=== PATIENT | female | born 1945 | race Caucasian/White ===

== ENCOUNTER 2017-06-20 14:28 | Inpatient (IN) | payer MEDICARE, OTHER ==
[~2017-06-20] VITALS: Ht 157.5 cm; Wt 50.8 kg
[~2017-06-20 14:28] MED LIST: LORA0.5T PO; OMEP-84 PO; RISP1TAB3 PO; SERT25TA PO; VENL75CA61 PO
[2017-06-20] MEDS ORDERED: ziprasidone IM 20mg inj **IM only IM ONE ×2 (15:50→19:50)
[2017-06-20 16:28] LABS: BASOPHILS % (AUTO) 0.2 % (0-1); EOSINOPHILS # (AUTO) 0.1 X10'3 (0-0.9); EOSINOPHILS % (AUTO) 0.4 % (0-6); HEMATOCRIT 36.1 % (35.0-45.0); HEMOGLOBIN 12.6 g/dl (12.0-16.0); LYMPHOCYTES # (AUTO) 0.9 X10'3 (1.1-4.8); LYMPHOCYTES % (AUTO) 6.2 % (21-51); MEAN CORPUSCULAR HEMOGLOBIN 29.9 PG (27.0-31.0); MEAN CORPUSCULAR VOLUME 85.5 FL (78-98); MEAN PLATELET VOLUME 7.5 FL (7.4-10.4); MONOCYTES # (AUTO) 0.6 X10'3 (0-0.9); MONOCYTES % (AUTO) 4.1 % (2-12); NEUTROPHILS # (AUTO) 12.2 X10'3 (1.8-7.7); NEUTROPHILS % (AUTO) 89.1 % (42-75); PLATELET COUNT 328 X10'3 (140-440); RED BLOOD COUNT 4.22 X10'6 (4.20-5.60); RED CELL DISTRIBUTION WIDTH 13.5 % (11.5-14.5); WHITE BLOOD COUNT 13.7 X10'3 (4.5-11.0)
[2017-06-20 16:43] LABS: ALANINE AMINOTRANSFERASE 21 U/L (12-78); ALBUMIN 3.4 G/DL (3.4-5.0); ALBUMIN/GLOBULIN RATIO 1.1 (1.1-1.5); ALKALINE PHOSPHATASE 81 IU/L (46-116); ANION GAP 10 (8-16); ASPARTATE AMINO TRANSFERASE 26 U/L (10-37); BILIRUBIN,TOTAL 0.7 MG/DL (0.1-1.0); BLOOD UREA NITROGEN 7 MG/DL (7-18); CALCIUM 9.1 MG/DL (8.5-10.1); CHLORIDE 89 MMOL/L (99-107); ETHANOL < 0.010 GM/DL (0.0-0.010); GLUCOSE 105 MG/DL (70-104); POTASSIUM 4.2 MMOL/L (3.5-5.1); SODIUM 123 MMOL/L (135-145); TOTAL CARBON DIOXIDE 24.4 MMOL/L (24-32); TOTAL PROTEIN 6.4 G/DL (6.4-8.2); eGFR 82 ML/MIN
[2017-06-20 17:08] LABS: URINE AMPHETAMINE SCREEN NEGATIVE (Neg); URINE BARBITUATE SCREEN NEGATIVE (Neg); URINE BENZODIAZEPINES SCREEN NEGATIVE (Neg); URINE CANNABINOID SCREEN NEGATIVE (Neg); URINE COCAINE SCREEN NEGATIVE (Neg); URINE METHADONE SCREEN NEGATIVE (Neg); URINE OPIATE SCREEN NEGATIVE (Neg); URINE PHENCYCLIDINE SCREEN NEGATIVE (Neg)
[2017-06-20] MEDS: normal saline 1000ml 1,000 ML IV SCH (17:41)
[2017-06-20] MEDS ORDERED: diphenhydrAMINE 50 mg/ml inj IV PRN (17:45)
[2017-06-20] MEDS ORDERED: acetaminophen 650mg rectal suppository RC PRN (17:45)
[2017-06-20] MEDS ORDERED: magnesium hydroxide 30ml (MOM) UD suspension PO PRN (17:45)
[2017-06-20] MEDS ORDERED: potassium Cl 40MEQ/NS 500ml 500 ML IV PRN ×2 (17:45)
[2017-06-20] MEDS ORDERED: potassium Cl 20 mEq SR tablet PO PRN ×2 (17:45)
[2017-06-20] MEDS ORDERED: magnesium Cl slow-release 64mg tablet PO PRN (17:45)
[2017-06-20] MEDS ORDERED: ondansetron/PF 4mg/2ml inj IV PRN (17:45)
[2017-06-20] MEDS ORDERED: mag hydrox/Alum hydrox/simeth 30ml oral suspension PO PRN (17:45)
[2017-06-20] MEDS ORDERED: LORazepam 2 mg/ml vial IV PRN (17:45)
[2017-06-20] MEDS ORDERED: magnesium 4gm in 100ml NS 100 ML IV PRN (17:45)
[2017-06-20] MEDS ORDERED: magnesium 2GM in 50ml NS 50 ML IV PRN (17:45)
[2017-06-20] MEDS: K and/or MAG REPLACEMENT MC SCH (17:45)
[2017-06-20 18:22] LABS: HEMOGLOBIN A1C 5.1 % (4.5-6.2)
[2017-06-20 18:42] LABS: TROPONIN I 2.71 NG/ML (0.0-0.05)
[2017-06-20 18:47] LABS: CLARITY,URINE Turbid (Clear); COLOR,URINE Yellow (Yellow); GLUCOSE, URINE Negative (Neg); KETONES,URINE Negative (Neg); LEUKOCYTE ESTERASE ,URINE Small (Neg); NITRITES, URINE Negative (Neg); OCCULT BLOOD,URINE Trace (Neg); PH,URINE 5.5 (4.8-8.0); PROTEIN,URINE Negative (Neg)
[2017-06-20 18:59] LABS: UA COLLECTION TYPE VOIDED
[2017-06-20 19:00] LABS: AMORPHOUS URATES 1+; BACTERIA,URINE 1+ /HPF (Neg); RBC,URINE 0-2 /HPF (0-2); SQUAMOUS EPITHELIAL CELL,UR FEW /LPF (FEW)
[2017-06-20] MEDS ORDERED: heparin 10,000 units/1 ML INJ IV PRN (19:00)
[2017-06-20] MEDS ORDERED: aspirin 325mg tablet PO ONE (19:00)
[2017-06-20] MEDS ORDERED: heparin 10,000 units/1 ML INJ IV ONE (19:00)
[2017-06-20] MEDS: heparin 10,000 units/1 ML INJ IV PRN (20:04)
[2017-06-20] MEDS ORDERED: temazepam 15mg capsule PO PRN (21:00)
[2017-06-20 21:25] LABS: BASOPHILS % (AUTO) 0 % (0-1); EOSINOPHILS # (AUTO) 0.1 X10'3 (0-0.9); EOSINOPHILS % (AUTO) 1.1 % (0-6); LYMPHOCYTES % (AUTO) 10.5 % (21-51); MEAN CORPUSCULAR HEMOGLOBIN 30.2 PG (27.0-31.0); MEAN CORPUSCULAR HGB CONC 35.2 % (33.0-36.5); MEAN CORPUSCULAR VOLUME 85.7 FL (78-98); MEAN PLATELET VOLUME 6.9 FL (7.4-10.4); MONOCYTES # (AUTO) 0.5 X10'3 (0-0.9); MONOCYTES % (AUTO) 5.2 % (2-12); NEUTROPHILS # (AUTO) 8.2 X10'3 (1.8-7.7); NEUTROPHILS % (AUTO) 83.2 % (42-75); PLATELET COUNT 295 X10'3 (140-440); RED BLOOD COUNT 4.31 X10'6 (4.20-5.60); RED CELL DISTRIBUTION WIDTH 13.6 % (11.5-14.5); WHITE BLOOD COUNT 9.8 X10'3 (4.5-11.0)
[2017-06-20 21:37] LABS: PARTIAL THROMBOPLASTIN TIME 27 SECONDS (22-32); PROTHROMBIN TIME 10.7 SECONDS (9.0-12.0)
[2017-06-21] MEDS: normal saline 1000ml 1,000 ML IV SCH ×3 (01:41→17:41)
[2017-06-21 04:14] LABS: ALANINE AMINOTRANSFERASE 22 U/L (12-78); ALBUMIN 2.9 G/DL (3.4-5.0); ALBUMIN/GLOBULIN RATIO 1.1 (1.1-1.5); ALKALINE PHOSPHATASE 73 IU/L (46-116); ANION GAP 8 (8-16); ASPARTATE AMINO TRANSFERASE 43 U/L (10-37); BILIRUBIN,TOTAL 0.7 MG/DL (0.1-1.0); BLOOD UREA NITROGEN 5 MG/DL (7-18); BUN/CREATININE RATIO 7.1 (6.6-38.0); CALCIUM 8.5 MG/DL (8.5-10.1); CHLORIDE 98 MMOL/L (99-107); CHOLESTEROL 125 MG/DL (0-200); GLUCOSE 82 MG/DL (70-104); HDL CHOLESTEROL 61 MG/DL (35-60); LDL CHOLESTEROL 54 MG/DL (50-100); MAGNESIUM 1.7 MG/DL (1.5-2.4); PHOSPHORUS 3.3 MG/DL (2.3-4.5); POTASSIUM 4.3 MMOL/L (3.5-5.1); SODIUM 132 MMOL/L (135-145); TOTAL CARBON DIOXIDE 26.5 MMOL/L (24-32); TOTAL PROTEIN 5.6 G/DL (6.4-8.2); TRIGLYCERIDES 32 MG/DL (20-135); eGFR 82 ML/MIN
[2017-06-21 04:17] LABS: TROPONIN I 5.72 NG/ML (0.0-0.05)
[2017-06-21 06:31] LABS: BASOPHILS % (AUTO) 0.5 % (0-1); EOSINOPHILS # (AUTO) 0.1 X10'3 (0-0.9); EOSINOPHILS % (AUTO) 1.2 % (0-6); HEMATOCRIT 33.2 % (35.0-45.0); HEMOGLOBIN 11.3 g/dl (12.0-16.0); LYMPHOCYTES # (AUTO) 0.8 X10'3 (1.1-4.8); LYMPHOCYTES % (AUTO) 13.6 % (21-51); MEAN CORPUSCULAR HGB CONC 34.1 % (33.0-36.5); MEAN PLATELET VOLUME 7.3 FL (7.4-10.4); MONOCYTES # (AUTO) 0.4 X10'3 (0-0.9); MONOCYTES % (AUTO) 6.8 % (2-12); NEUTROPHILS # (AUTO) 4.8 X10'3 (1.8-7.7); NEUTROPHILS % (AUTO) 77.9 % (42-75); PLATELET COUNT 251 X10'3 (140-440); RED BLOOD COUNT 3.77 X10'6 (4.20-5.60); RED CELL DISTRIBUTION WIDTH 13.7 % (11.5-14.5); WHITE BLOOD COUNT 6.2 X10'3 (4.5-11.0)
[2017-06-21] MEDS: K and/or MAG REPLACEMENT MC SCH (08:00)
[2017-06-21] MEDS ORDERED: enoxaparin 40mg/0.4ml syringe SUBCUT SCH (08:00)
[2017-06-21] MEDS: atorvastatin 10mg tablet PO SCH (09:40)
[2017-06-21] MEDS: aspirin 81mg tablet.DR PO SCH (09:40)
[2017-06-21] MEDS: LORazepam 0.5 MG tablet PO SCH (13:42)
[2017-06-21] MEDS: sertraline 50mg tablet PO SCH (13:42)
[2017-06-21] MEDS: pantoprazole 40mg Tablet.DR PO SCH (13:43)
[2017-06-21] MEDS: venlafaxine XR 75mg capsule (Q24H) PO SCH (13:43)
[2017-06-21] MEDS: risperiDONE 0.5mg tablet PO SCH (13:44)
[2017-06-21 14:53] VITALS: BP 104/62
[2017-06-21] MEDS: heparin 10,000 units/1 ML INJ IV PRN (17:23)
[2017-06-21 19:00] VITALS: BP 106/55
[2017-06-21] MEDS: acetaminophen 325mg tablet PO PRN (19:31)
[2017-06-21] MEDS ORDERED: NO HOME MEDS (20:12)
[2017-06-21 23:00] VITALS: BP 96/51
[2017-06-22 03:00] VITALS: BP 118/68
[2017-06-22] MEDS: acetaminophen 325mg tablet PO PRN (04:01)
[2017-06-22 06:00] VITALS: BP 124/76
[2017-06-22 06:01] LABS: BASOPHILS % (AUTO) 0.5 % (0-1); EOSINOPHILS # (AUTO) 0.1 X10'3 (0-0.9); EOSINOPHILS % (AUTO) 1.5 % (0-6); LYMPHOCYTES # (AUTO) 1.4 X10'3 (1.1-4.8); LYMPHOCYTES % (AUTO) 23.4 % (21-51); MEAN CORPUSCULAR HEMOGLOBIN 30.1 PG (27.0-31.0); MEAN CORPUSCULAR HGB CONC 34.3 % (33.0-36.5); MEAN CORPUSCULAR VOLUME 87.8 FL (78-98); MEAN PLATELET VOLUME 8.1 FL (7.4-10.4); MONOCYTES # (AUTO) 0.4 X10'3 (0-0.9); MONOCYTES % (AUTO) 7.1 % (2-12); NEUTROPHILS % (AUTO) 67.5 % (42-75); PLATELET COUNT 224 X10'3 (140-440); RED BLOOD COUNT 3.64 X10'6 (4.20-5.60)
[2017-06-22 06:16] LABS: ALANINE AMINOTRANSFERASE 23 U/L (12-78); ALBUMIN 2.7 G/DL (3.4-5.0); ALKALINE PHOSPHATASE 59 IU/L (46-116); ANION GAP 9 (8-16); ASPARTATE AMINO TRANSFERASE 32 U/L (10-37); BILIRUBIN,TOTAL 0.4 MG/DL (0.1-1.0); BLOOD UREA NITROGEN 20 MG/DL (7-18); BUN/CREATININE RATIO 24.4 (6.6-38.0); CHLORIDE 103 MMOL/L (99-107); CREATININE 0.82 MG/DL (0.40-0.90); GLUCOSE 101 MG/DL (70-104); MAGNESIUM 1.7 MG/DL (1.5-2.4); PHOSPHORUS 3.1 MG/DL (2.3-4.5); POTASSIUM 4.2 MMOL/L (3.5-5.1); SODIUM 135 MMOL/L (135-145); TOTAL CARBON DIOXIDE 22.8 MMOL/L (24-32); TOTAL PROTEIN 5.5 G/DL (6.4-8.2); eGFR 69 ML/MIN
[2017-06-22] MEDS: normal saline 1000ml 1,000 ML IV SCH (06:31)
[2017-06-22] MEDS: sertraline 50mg tablet PO SCH (07:50)
[2017-06-22] MEDS: venlafaxine XR 75mg capsule (Q24H) PO SCH (07:51)
[2017-06-22] MEDS: pantoprazole 40mg Tablet.DR PO SCH (07:51)
[2017-06-22] MEDS: LORazepam 0.5 MG tablet PO SCH (07:51)
[2017-06-22] MEDS: atorvastatin 10mg tablet PO SCH (07:51)
[2017-06-22] MEDS: aspirin 81mg tablet.DR PO SCH (07:51)
[2017-06-22] MEDS: risperiDONE 0.5mg tablet PO SCH (07:54)
[2017-06-22] MEDS ORDERED: clopidogrel 75mg tablet PO SCH (08:00)
[2017-06-22] MEDS: K and/or MAG REPLACEMENT MC SCH (08:00)
[2017-06-22] MEDS ORDERED: lisinopril 5mg tablet PO SCH (08:05)
[2017-06-22 11:00] VITALS: BP 100/52
[2017-06-22] MEDS: heparin 10,000 units/1 ML INJ IV PRN (13:16)
[2017-06-22 15:00] VITALS: BP 106/58
== END 2017-06-22 19:31 | disposition left against medical advice (07) | DRG 280 ==
LOC: ER 14:28 → ED HOLD 17:41 → EDBEDREQ 06-21 12:57 → PCU 3S 06-21 14:00
PROVIDERS: ADMIT Family Medicine; ATTEND Family Medicine
DX: I21.4 Non-ST elevation (NSTEMI) myocardial infarction (principal); G93.40 Encephalopathy, unspecified; E87.1 Hypo-osmolality and hyponatremia; E86.0 Dehydration; F23 Brief psychotic disorder; D72.829 Elevated white blood cell count, unspecified; F32.9 Major depressive disorder, single episode, unspecified; F41.9 Anxiety disorder, unspecified; F12.90 Cannabis use, unspecified, uncomplicated; Z53.21 Procedure and treatment not carried out due to patient leaving prior to being seen by health care provider; Z60.2 Problems related to living alone; I34.0 Nonrheumatic mitral (valve) insufficiency; R41.3 Other amnesia; J44.9 Chronic obstructive pulmonary disease, unspecified; Z88.0 Allergy status to penicillin; Z88.1 Allergy status to other antibiotic agents; Z88.6 Allergy status to analgesic agent; Z79.899 Other long term (current) drug therapy; Z90.710 Acquired absence of both cervix and uterus; Z91.19 Patient's noncompliance with other medical treatment and regimen
CPT/HCPCS: 36415; 70450; 80053; 80061; 80305; 80320; 81001; 83036; 83605; 83735; 84100; 84484; 85025; 85610; 85730; 87040; 87070; 87077; 87088; 87186; 93306; 99285; A6213; J1644; J3486; J7030

== ENCOUNTER 2018-01-07 12:57 | Emergency (ER) | payer MEDICARE, OTHER ==
[~2018-01-07] VITALS: Ht 147.3 cm; Wt 43.0 kg
[~2018-01-07 12:57] MED LIST changes: -LORA0.5T PO; +NO HOME MEDS; -OMEP-84 PO; -RISP1TAB3 PO; -SERT25TA PO; -VENL75CA61 PO
[2018-01-07 13:51] LABS: BASOPHILS % (AUTO) 0 % (0-1); EOSINOPHILS % (AUTO) 0.4 % (0-6); HEMATOCRIT 42.3 % (35.0-45.0); HEMOGLOBIN 14.1 g/dl (12.0-16.0); LYMPHOCYTES # (AUTO) 0.6 X10'3 (1.1-4.8); MEAN CORPUSCULAR HEMOGLOBIN 29.7 PG (27.0-31.0); MEAN CORPUSCULAR HGB CONC 33.2 % (33.0-36.5); MEAN CORPUSCULAR VOLUME 89.2 FL (78-98); MEAN PLATELET VOLUME 8.2 FL (7.4-10.4); MONOCYTES # (AUTO) 0.2 X10'3 (0-0.9); NEUTROPHILS # (AUTO) 6.8 X10'3 (1.8-7.7); NEUTROPHILS % (AUTO) 88.6 % (42-75); PLATELET COUNT 248 X10'3 (140-440); RED BLOOD COUNT 4.74 X10'6 (4.20-5.60); RED CELL DISTRIBUTION WIDTH 13.8 % (11.5-14.5); WHITE BLOOD COUNT 7.7 X10'3 (4.5-11.0)
[2018-01-07 14:03] LABS: CLARITY,URINE CLEAR (Clear); COLOR,URINE YELLOW (Yellow); GLUCOSE, URINE NEGATIVE (Neg); KETONES,URINE NEGATIVE (Neg); LEUKOCYTE ESTERASE ,URINE NEGATIVE (Neg); NITRITES, URINE NEGATIVE (Neg); OCCULT BLOOD,URINE NEGATIVE (Neg); PROTEIN,URINE NEGATIVE (Neg)
[2018-01-07 14:08] LABS: UA COLLECTION TYPE STRAIGHT CATH
[2018-01-07 14:09] LABS: ALANINE AMINOTRANSFERASE 24 U/L (12-78); ALBUMIN 3.4 G/DL (3.4-5.0); ALKALINE PHOSPHATASE 119 IU/L (46-116); ANION GAP 7 (8-16); ASPARTATE AMINO TRANSFERASE 18 U/L (10-37); BILIRUBIN,TOTAL 0.4 MG/DL (0.1-1.0); BLOOD UREA NITROGEN 19 MG/DL (7-18); BUN/CREATININE RATIO 24.7 (6.6-38.0); CALCIUM 8.8 MG/DL (8.5-10.1); CHLORIDE 105 MMOL/L (99-107); CREATININE 0.77 MG/DL (0.40-0.90); GLUCOSE 91 MG/DL (70-104); SODIUM 142 MMOL/L (135-145); TOTAL CARBON DIOXIDE 29.7 MMOL/L (24-32); TOTAL PROTEIN 6.8 G/DL (6.4-8.2); eGFR 73 ML/MIN
[2018-01-07 14:15] LABS: URINE AMPHETAMINE SCREEN NEGATIVE (Neg); URINE BARBITUATE SCREEN NEGATIVE (Neg); URINE BENZODIAZEPINES SCREEN NEGATIVE (Neg); URINE CANNABINOID SCREEN NEGATIVE (Neg); URINE COCAINE SCREEN NEGATIVE (Neg); URINE METHADONE SCREEN NEGATIVE (Neg); URINE OPIATE SCREEN NEGATIVE (Neg); URINE PHENCYCLIDINE SCREEN NEGATIVE (Neg)
[2018-01-07 14:38] LABS: ETHANOL < 0.010 GM/DL (0.0-0.010)
[2018-01-08] MEDS ORDERED: LORazepam 2 mg/ml vial IM ONE (20:55)
[2018-01-08] MEDS ORDERED: haloperidol lactate 5mg/ml inj IM ONE (20:55)
[2018-01-09] MEDS ORDERED: LORA-269 PO (18:24)
[2018-01-09] MEDS ORDERED: HALO2TAB PO (18:24)
[2018-01-10] MEDS ORDERED: haloperidol 1mg tablet PO SCH
[2018-01-10] MEDS ORDERED: LORazepam 1 MG tablet PO SCH
[2018-01-10] MEDS ORDERED: LORazepam 1 MG tablet PO PRN (00:40)
[2018-01-10] MEDS ORDERED: haloperidol 1mg tablet PO PRN (00:40)
[2018-01-10] MEDS ORDERED: haloperidol lactate 5mg/ml inj IM ONE (14:40)
[2018-01-10] MEDS ORDERED: LORazepam 2 mg/ml vial IM ONE (14:40)
[2018-01-10 16:14] VITALS: BP 130/78
== END 2018-01-10 16:17 ==
LOC: ER 12:58
DX: F29 Unspecified psychosis not due to a substance or known physiological condition (principal); F41.9 Anxiety disorder, unspecified; F32.9 Major depressive disorder, single episode, unspecified; Z90.710 Acquired absence of both cervix and uterus; F12.10 Cannabis abuse, uncomplicated; Z88.1 Allergy status to other antibiotic agents; Z88.0 Allergy status to penicillin; Z88.6 Allergy status to analgesic agent
CPT/HCPCS: 36415; 80053; 80305; 80320; 81003; 84443; 85025; 96372; 99285; J1630; J2060

== ENCOUNTER 2018-01-10 15:24 | Inpatient (IN) | payer MEDICARE, MEDICAID ==
[~2018-01-10] VITALS: Ht 152.4 cm; Wt 47.4 kg
[~2018-01-10 15:24] MED LIST changes: +HALO2TAB PO; +LORA-269 PO; -NO HOME MEDS
[2018-01-10] MEDS ORDERED: acetaminophen 325mg tablet PO PRN ×2 (16:50)
[2018-01-10] MEDS ORDERED: mag hydrox/Alum hydrox/simeth 30ml oral suspension PO PRN (16:50)
[2018-01-10] MEDS ORDERED: magnesium hydroxide 30ml (MOM) UD suspension PO PRN (16:50)
[2018-01-10 19:33] VITALS: BP 154/84
[2018-01-11 08:00] VITALS: BP 182/83
[2018-01-11] MEDS ORDERED: amLODIPine 5mg tablet PO ONE (18:05)
[2018-01-11] MEDS: lisinopril 20mg tablet PO SCH (18:10)
[2018-01-11 20:00] VITALS: BP 142/64
[2018-01-11] MEDS ORDERED: LORazepam 0.5 MG tablet PO SCH (20:00)
[2018-01-11] MEDS: risperiDONE 0.5mg tablet PO SCH (20:00)
[2018-01-12 08:00] VITALS: BP 129/75
[2018-01-12] MEDS: clopidogrel 75mg tablet PO SCH (08:00)
[2018-01-12] MEDS ORDERED: amLODIPine 5mg tablet PO SCH (08:00)
[2018-01-12] MEDS: lisinopril 20mg tablet PO SCH (08:00)
[2018-01-12] MEDS: risperiDONE 0.5mg tablet PO SCH ×2 (08:00→20:00)
[2018-01-12] MEDS: venlafaxine XR 37.5mg cap (Q24H) PO SCH (08:00)
[2018-01-12] MEDS: atorvastatin 10mg tablet PO SCH (08:00)
[2018-01-13] MEDS: risperiDONE 0.5mg tablet PO SCH ×2 (08:00→20:00)
[2018-01-13] MEDS: clopidogrel 75mg tablet PO SCH (08:00)
[2018-01-13] MEDS: lisinopril 20mg tablet PO SCH (08:00)
[2018-01-13] MEDS: venlafaxine XR 37.5mg cap (Q24H) PO SCH (08:00)
[2018-01-13] MEDS: atorvastatin 10mg tablet PO SCH (08:00)
[2018-01-13 08:59] VITALS: BP 100/67
[2018-01-13 18:45] VITALS: BP 160/64
[2018-01-13 20:00] VITALS: BP 160/64
[2018-01-14 08:00] VITALS: BP 144/76
[2018-01-14] MEDS: risperiDONE 0.5mg tablet PO SCH ×2 (08:00→20:00)
[2018-01-14] MEDS: venlafaxine XR 37.5mg cap (Q24H) PO SCH (08:00)
[2018-01-14] MEDS: clopidogrel 75mg tablet PO SCH (08:00)
[2018-01-14] MEDS: atorvastatin 10mg tablet PO SCH (08:00)
[2018-01-14] MEDS: lisinopril 20mg tablet PO SCH (08:00)
[2018-01-15 08:00] VITALS: BP 121/57
[2018-01-15] MEDS: clopidogrel 75mg tablet PO SCH (08:00)
[2018-01-15] MEDS: lisinopril 20mg tablet PO SCH (08:30)
[2018-01-15] MEDS: venlafaxine XR 37.5mg cap (Q24H) PO SCH (08:30)
[2018-01-15] MEDS: risperiDONE 0.5mg tablet PO SCH ×2 (08:30→20:00)
[2018-01-15] MEDS: atorvastatin 10mg tablet PO SCH (08:30)
[2018-01-15] MEDS: OLANZapine 5mg rapidly disint. tablet PO PRN (22:10)
[2018-01-16 08:00] VITALS: BP 144/73
[2018-01-16] MEDS: atorvastatin 10mg tablet PO SCH (08:00)
[2018-01-16] MEDS: risperiDONE 0.5mg tablet PO SCH ×2 (08:00→20:00)
[2018-01-16] MEDS: lisinopril 20mg tablet PO SCH (08:00)
[2018-01-16] MEDS: clopidogrel 75mg tablet PO SCH (08:00)
[2018-01-16] MEDS: venlafaxine XR 37.5mg cap (Q24H) PO SCH (08:00)
[2018-01-17] MEDS: venlafaxine XR 37.5mg cap (Q24H) PO SCH (08:00)
[2018-01-17] MEDS: lisinopril 20mg tablet PO SCH (08:00)
[2018-01-17] MEDS: risperiDONE 0.5mg tablet PO SCH ×2 (08:00→20:00)
[2018-01-17] MEDS: atorvastatin 10mg tablet PO SCH (08:00)
[2018-01-17] MEDS: clopidogrel 75mg tablet PO SCH (08:00)
[2018-01-18] MEDS: atorvastatin 10mg tablet PO SCH (08:00)
[2018-01-18] MEDS: clopidogrel 75mg tablet PO SCH (08:00)
[2018-01-18] MEDS: venlafaxine XR 37.5mg cap (Q24H) PO SCH (08:00)
[2018-01-18] MEDS: risperiDONE 0.5mg tablet PO SCH ×2 (08:00→19:55)
[2018-01-18] MEDS: lisinopril 20mg tablet PO SCH (08:00)
[2018-01-19] MEDS: risperiDONE 0.5mg tablet PO SCH ×2 (08:00→20:00)
[2018-01-19] MEDS: lisinopril 20mg tablet PO SCH (08:00)
[2018-01-19] MEDS: venlafaxine XR 37.5mg cap (Q24H) PO SCH (08:00)
[2018-01-19] MEDS: atorvastatin 10mg tablet PO SCH (08:00)
[2018-01-19] MEDS: clopidogrel 75mg tablet PO SCH (08:00)
[2018-01-20 08:00] VITALS: BP 125/70
[2018-01-20] MEDS: risperiDONE 0.5mg tablet PO SCH ×2 (08:00→20:00)
[2018-01-20] MEDS: venlafaxine XR 37.5mg cap (Q24H) PO SCH (08:00)
[2018-01-20] MEDS: lisinopril 20mg tablet PO SCH (08:00)
[2018-01-20] MEDS: atorvastatin 10mg tablet PO SCH (08:00)
[2018-01-20] MEDS: clopidogrel 75mg tablet PO SCH (08:00)
[2018-01-21] MEDS: venlafaxine XR 37.5mg cap (Q24H) PO SCH (08:00)
[2018-01-21] MEDS: risperiDONE 0.5mg tablet PO SCH ×2 (08:00→20:00)
[2018-01-21] MEDS: clopidogrel 75mg tablet PO SCH (08:00)
[2018-01-21] MEDS: lisinopril 20mg tablet PO SCH (08:00)
[2018-01-21] MEDS: atorvastatin 10mg tablet PO SCH (08:00)
[2018-01-22] MEDS: LORazepam 0.5 MG tablet PO PRN ×2 (00:55→21:42)
[2018-01-22] MEDS: OLANZapine 5mg rapidly disint. tablet PO PRN ×2 (00:55→21:42)
[2018-01-22 08:00] VITALS: BP 140/81
[2018-01-22] MEDS: atorvastatin 10mg tablet PO SCH (08:00)
[2018-01-22] MEDS: lisinopril 20mg tablet PO SCH (08:00)
[2018-01-22] MEDS: venlafaxine XR 37.5mg cap (Q24H) PO SCH (08:00)
[2018-01-22] MEDS: risperiDONE 0.5mg tablet PO SCH ×2 (08:00→20:00)
[2018-01-22] MEDS: clopidogrel 75mg tablet PO SCH (08:00)
[2018-01-23 08:00] VITALS: BP_SYST 138
[2018-01-23] MEDS: risperiDONE 0.5mg tablet PO SCH ×2 (08:00→20:38)
[2018-01-23] MEDS: atorvastatin 10mg tablet PO SCH (08:00)
[2018-01-23] MEDS: lisinopril 20mg tablet PO SCH (08:00)
[2018-01-23] MEDS: venlafaxine XR 37.5mg cap (Q24H) PO SCH (08:00)
[2018-01-23] MEDS: clopidogrel 75mg tablet PO SCH (08:00)
[2018-01-23] MEDS: LORazepam 0.5 MG tablet PO PRN (20:38)
[2018-01-24 08:00] VITALS: BP 103/67
[2018-01-24] MEDS: atorvastatin 10mg tablet PO SCH (08:00)
[2018-01-24] MEDS: venlafaxine XR 37.5mg cap (Q24H) PO SCH (08:00)
[2018-01-24] MEDS: risperiDONE 0.5mg tablet PO SCH ×2 (08:00→20:00)
[2018-01-24] MEDS: clopidogrel 75mg tablet PO SCH (08:00)
[2018-01-24] MEDS: lisinopril 20mg tablet PO SCH (08:00)
[2018-01-25 08:00] VITALS: BP 184/85
[2018-01-25] MEDS: risperiDONE 0.5mg tablet PO SCH ×2 (08:24→20:32)
[2018-01-25] MEDS: clopidogrel 75mg tablet PO SCH (08:25)
[2018-01-25] MEDS: lisinopril 20mg tablet PO SCH (08:25)
[2018-01-25] MEDS: venlafaxine XR 37.5mg cap (Q24H) PO SCH (08:25)
[2018-01-25] MEDS: atorvastatin 10mg tablet PO SCH (08:25)
[2018-01-25] MEDS: LORazepam 0.5 MG tablet PO PRN (20:32)
[2018-01-26 08:00] VITALS: BP 152/80
[2018-01-26] MEDS: lisinopril 20mg tablet PO SCH (08:00)
[2018-01-26] MEDS: venlafaxine XR 37.5mg cap (Q24H) PO SCH (08:20)
[2018-01-26] MEDS: clopidogrel 75mg tablet PO SCH (08:22)
[2018-01-26] MEDS: atorvastatin 10mg tablet PO SCH (08:22)
[2018-01-26] MEDS: risperiDONE 0.5mg tablet PO SCH ×2 (08:24→20:00)
[2018-01-27 07:46] VITALS: BP 147/84
[2018-01-27] MEDS: risperiDONE 0.5mg tablet PO SCH ×3 (08:00→20:55)
[2018-01-27] MEDS: clopidogrel 75mg tablet PO SCH ×2 (08:00→11:35)
[2018-01-27] MEDS: atorvastatin 10mg tablet PO SCH ×2 (08:00→11:35)
[2018-01-27] MEDS: venlafaxine XR 37.5mg cap (Q24H) PO SCH ×2 (08:00→11:35)
[2018-01-27] MEDS: lisinopril 20mg tablet PO SCH ×2 (08:00→11:37)
[2018-01-28] MEDS: venlafaxine XR 37.5mg cap (Q24H) PO SCH (08:10)
[2018-01-28] MEDS: clopidogrel 75mg tablet PO SCH (08:10)
[2018-01-28] MEDS: risperiDONE 0.5mg tablet PO SCH ×2 (08:10→20:00)
[2018-01-28] MEDS: atorvastatin 10mg tablet PO SCH (08:10)
[2018-01-28] MEDS: lisinopril 20mg tablet PO SCH (08:35)
[2018-01-28 11:01] VITALS: BP 158/75
[2018-01-29 08:00] VITALS: BP 110/76
[2018-01-29] MEDS: clopidogrel 75mg tablet PO SCH (08:03)
[2018-01-29] MEDS: risperiDONE 0.5mg tablet PO SCH ×2 (08:03→20:14)
[2018-01-29] MEDS: venlafaxine XR 37.5mg cap (Q24H) PO SCH (08:03)
[2018-01-29] MEDS: atorvastatin 10mg tablet PO SCH (08:03)
[2018-01-29] MEDS: lisinopril 20mg tablet PO SCH (08:03)
[2018-01-30] MEDS: venlafaxine XR 37.5mg cap (Q24H) PO SCH (08:17)
[2018-01-30] MEDS: clopidogrel 75mg tablet PO SCH (08:17)
[2018-01-30] MEDS: lisinopril 20mg tablet PO SCH (08:17)
[2018-01-30] MEDS: atorvastatin 10mg tablet PO SCH (08:18)
[2018-01-30] MEDS: risperiDONE 0.5mg tablet PO SCH ×2 (08:52→20:20)
[2018-01-30] MEDS: LORazepam 0.5 MG tablet PO PRN (20:20)
[2018-01-31] MEDS: risperiDONE 0.5mg tablet PO SCH ×2 (08:06→20:00)
[2018-01-31] MEDS: atorvastatin 10mg tablet PO SCH (08:06)
[2018-01-31] MEDS: lisinopril 20mg tablet PO SCH (08:06)
[2018-01-31] MEDS: venlafaxine XR 37.5mg cap (Q24H) PO SCH (08:06)
[2018-01-31] MEDS: clopidogrel 75mg tablet PO SCH (08:06)
[2018-02-01 08:00] VITALS: BP 154/86
[2018-02-01] MEDS: clopidogrel 75mg tablet PO SCH (08:04)
[2018-02-01] MEDS: venlafaxine XR 37.5mg cap (Q24H) PO SCH (08:04)
[2018-02-01] MEDS: risperiDONE 0.5mg tablet PO SCH ×2 (08:04→20:00)
[2018-02-01] MEDS: atorvastatin 10mg tablet PO SCH (08:04)
[2018-02-01] MEDS: lisinopril 20mg tablet PO SCH (08:05)
[2018-02-02 07:55] VITALS: BP 140/80
[2018-02-02] MEDS: venlafaxine XR 37.5mg cap (Q24H) PO SCH (08:38)
[2018-02-02] MEDS: lisinopril 20mg tablet PO SCH (08:38)
[2018-02-02] MEDS: atorvastatin 10mg tablet PO SCH (08:38)
[2018-02-02] MEDS: clopidogrel 75mg tablet PO SCH (08:38)
[2018-02-02] MEDS: risperiDONE 0.5mg tablet PO SCH ×2 (08:39→20:36)
[2018-02-03] MEDS: lisinopril 20mg tablet PO SCH (08:24)
[2018-02-03] MEDS: clopidogrel 75mg tablet PO SCH (08:25)
[2018-02-03] MEDS: venlafaxine XR 37.5mg cap (Q24H) PO SCH (08:25)
[2018-02-03] MEDS: risperiDONE 0.5mg tablet PO SCH ×2 (08:25→20:18)
[2018-02-03] MEDS: atorvastatin 10mg tablet PO SCH (08:25)
[2018-02-04] MEDS: lisinopril 20mg tablet PO SCH (08:00)
[2018-02-04] MEDS: venlafaxine XR 37.5mg cap (Q24H) PO SCH (08:26)
[2018-02-04] MEDS: atorvastatin 10mg tablet PO SCH (08:26)
[2018-02-04] MEDS: clopidogrel 75mg tablet PO SCH (08:26)
[2018-02-04] MEDS: risperiDONE 0.5mg tablet PO SCH ×2 (08:26→20:00)
[2018-02-05] MEDS: lisinopril 20mg tablet PO SCH ×3 (07:23→10:13)
[2018-02-05] MEDS: venlafaxine XR 37.5mg cap (Q24H) PO SCH (08:00)
[2018-02-05] MEDS: clopidogrel 75mg tablet PO SCH (08:00)
[2018-02-05] MEDS: risperiDONE 0.5mg tablet PO SCH ×2 (08:00→19:22)
[2018-02-05] MEDS: atorvastatin 10mg tablet PO SCH (08:00)
[2018-02-05 08:19] VITALS: BP 140/85
[2018-02-06] MEDS: risperiDONE 0.5mg tablet PO SCH ×2 (08:00→20:00)
[2018-02-06 19:55] VITALS: BP 133/66
[2018-02-07] MEDS: risperiDONE 0.5mg tablet PO SCH ×2 (08:00→20:00)
[2018-02-07] MEDS: lisinopril 20mg tablet PO SCH (08:00)
[2018-02-07] MEDS: clopidogrel 75mg tablet PO SCH (08:00)
[2018-02-07] MEDS: venlafaxine XR 37.5mg cap (Q24H) PO SCH (08:00)
[2018-02-07] MEDS: atorvastatin 10mg tablet PO SCH (08:00)
[2018-02-07 08:23] VITALS: BP 136/75
[2018-02-08] MEDS: atorvastatin 10mg tablet PO SCH (08:00)
[2018-02-08] MEDS: clopidogrel 75mg tablet PO SCH (08:00)
[2018-02-08] MEDS: lisinopril 20mg tablet PO SCH (08:00)
[2018-02-08] MEDS: risperiDONE 0.5mg tablet PO SCH ×2 (08:00→20:00)
[2018-02-08] MEDS: venlafaxine XR 37.5mg cap (Q24H) PO SCH (08:00)
[2018-02-08 08:50] VITALS: BP 155/99
[2018-02-09] MEDS: lisinopril 20mg tablet PO SCH (08:00)
[2018-02-09] MEDS: atorvastatin 10mg tablet PO SCH (08:00)
[2018-02-09] MEDS: venlafaxine XR 37.5mg cap (Q24H) PO SCH (08:00)
[2018-02-09] MEDS: risperiDONE 0.5mg tablet PO SCH ×2 (08:00→20:00)
[2018-02-09] MEDS: clopidogrel 75mg tablet PO SCH (08:00)
[2018-02-10 08:00] VITALS: BP 150/78
[2018-02-10] MEDS: venlafaxine XR 37.5mg cap (Q24H) PO SCH (08:00)
[2018-02-10] MEDS: lisinopril 20mg tablet PO SCH (08:00)
[2018-02-10] MEDS: atorvastatin 10mg tablet PO SCH (08:00)
[2018-02-10] MEDS: clopidogrel 75mg tablet PO SCH (08:00)
[2018-02-10] MEDS: risperiDONE 0.5mg tablet PO SCH ×2 (08:00→20:00)
[2018-02-11] MEDS: clopidogrel 75mg tablet PO SCH (08:00)
[2018-02-11] MEDS: atorvastatin 10mg tablet PO SCH (08:00)
[2018-02-11] MEDS: lisinopril 20mg tablet PO SCH (08:00)
[2018-02-11] MEDS: risperiDONE 0.5mg tablet PO SCH ×2 (08:00→20:00)
[2018-02-11] MEDS: venlafaxine XR 37.5mg cap (Q24H) PO SCH (09:24)
[2018-02-12] MEDS: atorvastatin 10mg tablet PO SCH (08:00)
[2018-02-12] MEDS: venlafaxine XR 37.5mg cap (Q24H) PO SCH (08:00)
[2018-02-12] MEDS: lisinopril 20mg tablet PO SCH (08:00)
[2018-02-12] MEDS: risperiDONE 0.5mg tablet PO SCH ×2 (08:00→20:00)
[2018-02-12] MEDS: clopidogrel 75mg tablet PO SCH (08:00)
[2018-02-13] MEDS: atorvastatin 10mg tablet PO SCH (08:00)
[2018-02-13] MEDS: risperiDONE 0.5mg tablet PO SCH ×2 (08:00→20:00)
[2018-02-13] MEDS: venlafaxine XR 37.5mg cap (Q24H) PO SCH (08:00)
[2018-02-13] MEDS: clopidogrel 75mg tablet PO SCH (08:00)
[2018-02-13] MEDS: lisinopril 20mg tablet PO SCH (08:00)
[2018-02-14] MEDS: risperiDONE 0.5mg tablet PO SCH ×2 (08:00→20:00)
[2018-02-14] MEDS: lisinopril 20mg tablet PO SCH (08:00)
[2018-02-14] MEDS: clopidogrel 75mg tablet PO SCH (08:00)
[2018-02-14] MEDS: atorvastatin 10mg tablet PO SCH (08:00)
[2018-02-14] MEDS: venlafaxine XR 37.5mg cap (Q24H) PO SCH (08:00)
[2018-02-15] MEDS: atorvastatin 10mg tablet PO SCH (08:00)
[2018-02-15] MEDS: risperiDONE 0.5mg tablet PO SCH ×2 (08:00→20:00)
[2018-02-15] MEDS: venlafaxine XR 37.5mg cap (Q24H) PO SCH (08:00)
[2018-02-15] MEDS: clopidogrel 75mg tablet PO SCH (08:00)
[2018-02-15] MEDS: lisinopril 20mg tablet PO SCH (08:00)
[2018-02-15] MEDS ORDERED: OLANZapine 5mg rapidly disint. tablet PO PRN (14:10)
[2018-02-16] MEDS: clopidogrel 75mg tablet PO SCH (08:00)
[2018-02-16] MEDS: venlafaxine XR 37.5mg cap (Q24H) PO SCH (08:00)
[2018-02-16] MEDS: lisinopril 20mg tablet PO SCH (08:00)
[2018-02-16] MEDS: risperiDONE 0.5mg tablet PO SCH ×2 (08:00→20:00)
[2018-02-16] MEDS: atorvastatin 10mg tablet PO SCH (08:00)
[2018-02-16 20:19] VITALS: BP 143/66
[2018-02-17] MEDS: atorvastatin 10mg tablet PO SCH (08:00)
[2018-02-17] MEDS: lisinopril 20mg tablet PO SCH (08:00)
[2018-02-17] MEDS: risperiDONE 0.5mg tablet PO SCH ×2 (08:00→20:00)
[2018-02-17] MEDS: clopidogrel 75mg tablet PO SCH (08:00)
[2018-02-17] MEDS: venlafaxine XR 37.5mg cap (Q24H) PO SCH (08:00)
[2018-02-17] MEDS ORDERED: OLANZapine 5mg rapidly disint. tablet PO ONE (19:55)
[2018-02-17] MEDS ORDERED: LORazepam 1 MG tablet PO ONE (21:00)
[2018-02-18] MEDS: venlafaxine XR 37.5mg cap (Q24H) PO SCH (08:00)
[2018-02-18] MEDS: lisinopril 20mg tablet PO SCH (08:00)
[2018-02-18] MEDS: risperiDONE 0.5mg tablet PO SCH ×2 (08:00→20:00)
[2018-02-18] MEDS: atorvastatin 10mg tablet PO SCH (08:00)
[2018-02-18] MEDS: clopidogrel 75mg tablet PO SCH (08:00)
[2018-02-18 09:08] VITALS: BP 141/87
[2018-02-19] MEDS: risperiDONE 0.5mg tablet PO SCH ×2 (08:00→20:00)
[2018-02-19] MEDS: lisinopril 20mg tablet PO SCH (08:00)
[2018-02-19] MEDS: atorvastatin 10mg tablet PO SCH (08:00)
[2018-02-19] MEDS: clopidogrel 75mg tablet PO SCH (08:00)
[2018-02-19] MEDS: venlafaxine XR 37.5mg cap (Q24H) PO SCH (08:00)
[2018-02-20 07:46] VITALS: BP 182/83
[2018-02-20] MEDS: venlafaxine XR 37.5mg cap (Q24H) PO SCH (08:00)
[2018-02-20] MEDS: clopidogrel 75mg tablet PO SCH (08:00)
[2018-02-20] MEDS: risperiDONE 0.5mg tablet PO SCH ×2 (08:00→20:00)
[2018-02-20] MEDS: atorvastatin 10mg tablet PO SCH (08:00)
[2018-02-20] MEDS: lisinopril 20mg tablet PO SCH (08:00)
[2018-02-21] MEDS: clopidogrel 75mg tablet PO SCH (08:00)
[2018-02-21] MEDS: venlafaxine XR 37.5mg cap (Q24H) PO SCH (08:00)
[2018-02-21] MEDS: atorvastatin 10mg tablet PO SCH (08:00)
[2018-02-21] MEDS: lisinopril 20mg tablet PO SCH (08:00)
[2018-02-21] MEDS: risperiDONE 0.5mg tablet PO SCH ×2 (08:00→20:00)
[2018-02-22] MEDS: risperiDONE 0.5mg tablet PO SCH ×2 (08:00→20:00)
[2018-02-22] MEDS: atorvastatin 10mg tablet PO SCH (08:00)
[2018-02-22] MEDS: lisinopril 20mg tablet PO SCH (08:00)
[2018-02-22] MEDS: clopidogrel 75mg tablet PO SCH (08:00)
[2018-02-22] MEDS: venlafaxine XR 37.5mg cap (Q24H) PO SCH (08:00)
[2018-02-23 08:08] VITALS: BP 134/71
[2018-02-23] MEDS: venlafaxine XR 37.5mg cap (Q24H) PO SCH (09:29)
[2018-02-23] MEDS: risperiDONE 0.5mg tablet PO SCH ×3 (09:30→19:57)
[2018-02-23] MEDS: atorvastatin 10mg tablet PO SCH (09:30)
[2018-02-23] MEDS: lisinopril 20mg tablet PO SCH (09:30)
[2018-02-23] MEDS: clopidogrel 75mg tablet PO SCH (09:30)
[2018-02-24] MEDS: venlafaxine XR 37.5mg cap (Q24H) PO SCH (09:00)
[2018-02-24] MEDS: clopidogrel 75mg tablet PO SCH (09:00)
[2018-02-24] MEDS: lisinopril 20mg tablet PO SCH (09:00)
[2018-02-24] MEDS: atorvastatin 10mg tablet PO SCH (09:00)
[2018-02-24] MEDS: risperiDONE 0.5mg tablet PO SCH ×2 (09:30→20:18)
[2018-02-25] MEDS: venlafaxine XR 37.5mg cap (Q24H) PO SCH (07:53)
[2018-02-25] MEDS: clopidogrel 75mg tablet PO SCH (07:53)
[2018-02-25] MEDS: atorvastatin 10mg tablet PO SCH (07:53)
[2018-02-25] MEDS: risperiDONE 0.5mg tablet PO SCH ×2 (07:53→20:21)
[2018-02-25 08:00] VITALS: BP 142/75
[2018-02-25] MEDS: lisinopril 20mg tablet PO SCH (08:00)
[2018-02-26] MEDS: atorvastatin 10mg tablet PO SCH (08:00)
[2018-02-26] MEDS: clopidogrel 75mg tablet PO SCH (08:00)
[2018-02-26] MEDS: venlafaxine XR 37.5mg cap (Q24H) PO SCH (08:00)
[2018-02-26] MEDS: lisinopril 20mg tablet PO SCH (08:00)
[2018-02-26] MEDS: risperiDONE 0.5mg tablet PO SCH ×2 (08:01→20:00)
[2018-02-27] MEDS: clopidogrel 75mg tablet PO SCH (08:00)
[2018-02-27] MEDS: risperiDONE 0.5mg tablet PO SCH ×2 (08:00→20:25)
[2018-02-27] MEDS: atorvastatin 10mg tablet PO SCH (08:00)
[2018-02-27] MEDS: lisinopril 20mg tablet PO SCH (08:00)
[2018-02-27] MEDS: venlafaxine XR 37.5mg cap (Q24H) PO SCH (08:00)
[2018-02-28] MEDS: atorvastatin 10mg tablet PO SCH (08:00)
[2018-02-28] MEDS: risperiDONE 0.5mg tablet PO SCH ×2 (08:00→20:28)
[2018-02-28] MEDS: venlafaxine XR 37.5mg cap (Q24H) PO SCH (08:00)
[2018-02-28] MEDS: lisinopril 20mg tablet PO SCH (08:00)
[2018-02-28] MEDS: clopidogrel 75mg tablet PO SCH (08:00)
[2018-02-28] MEDS: mirtazapine 15mg tablet PO SCH (20:27)
[2018-03-01] MEDS: clopidogrel 75mg tablet PO SCH (08:00)
[2018-03-01] MEDS: atorvastatin 10mg tablet PO SCH (08:00)
[2018-03-01] MEDS: lisinopril 20mg tablet PO SCH (08:00)
[2018-03-01] MEDS: mirtazapine 15mg tablet PO SCH (20:42)
[2018-03-01] MEDS: risperiDONE 0.5mg tablet PO SCH (20:42)
[2018-03-02] MEDS: lisinopril 20mg tablet PO SCH (08:00)
[2018-03-02] MEDS: clopidogrel 75mg tablet PO SCH (08:00)
[2018-03-02] MEDS: atorvastatin 10mg tablet PO SCH (08:00)
[2018-03-02] MEDS: mirtazapine 15mg tablet PO SCH (21:25)
[2018-03-02] MEDS: risperiDONE 0.5mg tablet PO SCH (21:26)
[2018-03-02] MEDS: OLANZapine 5mg rapidly disint. tablet PO PRN (21:26)
[2018-03-03 08:00] VITALS: BP_SYST 141
[2018-03-03] MEDS: atorvastatin 10mg tablet PO SCH (08:00)
[2018-03-03] MEDS: lisinopril 20mg tablet PO SCH (08:00)
[2018-03-03] MEDS: clopidogrel 75mg tablet PO SCH (08:00)
[2018-03-03] MEDS: risperiDONE 0.5mg tablet PO SCH ×2 (20:48→21:30)
[2018-03-03] MEDS: mirtazapine 15mg tablet PO SCH ×2 (20:48→21:30)
[2018-03-04] MEDS: atorvastatin 10mg tablet PO SCH (08:00)
[2018-03-04] MEDS: clopidogrel 75mg tablet PO SCH (08:00)
[2018-03-04] MEDS: lisinopril 20mg tablet PO SCH (08:00)
[2018-03-04] MEDS ORDERED: RISP1TAB3 PO ×2 (09:07→18:50)
[2018-03-04] MEDS ORDERED: MIRT30TA8 PO ×2 (09:07→18:50)
[2018-03-04] MEDS ORDERED: ATOR10TA PO (09:07)
[2018-03-04] MEDS ORDERED: CLOP75TA35 PO ×2 (09:07→18:50)
[2018-03-04] MEDS ORDERED: LISI-600 PO ×2 (09:07→18:50)
[2018-03-04] MEDS ORDERED: ATOR10TA87 PO (18:47)
== END 2018-03-04 11:15 | disposition short-term general hospital (02) | DRG 885 ==
LOC: ADULT MH 15:24
PROVIDERS: ADMIT Psychiatry & Neurology Psychiatry; ATTEND Psychiatry & Neurology Psychiatry
DX: F33.3 Major depressive disorder, recurrent, severe with psychotic symptoms (principal); I25.10 Atherosclerotic heart disease of native coronary artery without angina pectoris; I10 Essential (primary) hypertension; F41.9 Anxiety disorder, unspecified; R47.1 Dysarthria and anarthria; F17.200 Nicotine dependence, unspecified, uncomplicated; E78.5 Hyperlipidemia, unspecified; R54 Age-related physical debility; I25.2 Old myocardial infarction; Z90.710 Acquired absence of both cervix and uterus; Z91.19 Patient's noncompliance with other medical treatment and regimen; Z79.02 Long term (current) use of antithrombotics/antiplatelets; Z79.899 Other long term (current) drug therapy; Z88.0 Allergy status to penicillin; Z88.5 Allergy status to narcotic agent; Z88.1 Allergy status to other antibiotic agents; Z82.41 Family history of sudden cardiac death
CPT/HCPCS: 87070; 99285

== ENCOUNTER 2018-03-04 15:36 | Emergency (ER) | payer MEDICARE, MEDICAID ==
[~2018-03-04] VITALS: Ht 152.4 cm; Wt 63.0 kg
[~2018-03-04 15:36] MED LIST changes: +ATOR10TA PO; +CLOP75TA35 PO; -HALO2TAB PO; +LISI-600 PO; -LORA-269 PO; +MIRT30TA8 PO; +RISP1TAB3 PO
[2018-03-04 16:34] LABS: BASOPHILS % (AUTO) 0.3 % (0-1); EOSINOPHILS # (AUTO) 0.1 X10'3 (0-0.9); EOSINOPHILS % (AUTO) 1.3 % (0-6); HEMATOCRIT 39.9 % (35.0-45.0); HEMOGLOBIN 13.6 g/dl (12.0-16.0); LYMPHOCYTES # (AUTO) 1.1 X10'3 (1.1-4.8); LYMPHOCYTES % (AUTO) 18.6 % (21-51); MEAN CORPUSCULAR HGB CONC 34.1 % (33.0-36.5); MEAN CORPUSCULAR VOLUME 87.9 FL (78-98); MEAN PLATELET VOLUME 8.3 FL (7.4-10.4); MONOCYTES # (AUTO) 0.3 X10'3 (0-0.9); NEUTROPHILS # (AUTO) 4.2 X10'3 (1.8-7.7); NEUTROPHILS % (AUTO) 74.8 % (42-75); PLATELET COUNT 243 X10'3 (140-440); RED BLOOD COUNT 4.54 X10'6 (4.20-5.60); WHITE BLOOD COUNT 5.7 X10'3 (4.5-11.0)
[2018-03-04 16:56] LABS: ALANINE AMINOTRANSFERASE 17 U/L (12-78); ALBUMIN 3.6 G/DL (3.4-5.0); ALBUMIN/GLOBULIN RATIO 1.2 (1.1-1.5); ALKALINE PHOSPHATASE 103 IU/L (46-116); ANION GAP 8 (8-16); ASPARTATE AMINO TRANSFERASE 13 U/L (10-37); BILIRUBIN,TOTAL 0.3 MG/DL (0.1-1.0); BLOOD UREA NITROGEN 24 MG/DL (7-18); BUN/CREATININE RATIO 27.9 (6.6-38.0); CHLORIDE 106 MMOL/L (99-107); CREATININE 0.86 MG/DL (0.40-0.90); GLUCOSE 96 MG/DL (70-104); POTASSIUM 4.4 MMOL/L (3.5-5.1); SODIUM 142 MMOL/L (135-145); TOTAL CARBON DIOXIDE 27.7 MMOL/L (24-32); TOTAL PROTEIN 6.7 G/DL (6.4-8.2); eGFR 65 ML/MIN
[2018-03-04 17:01] LABS: ETHANOL < 0.010 GM/DL (0.0-0.010)
[2018-03-04] MEDS ORDERED: ATOR10TA87 PO (18:47)
[2018-03-04] MEDS ORDERED: MIRT30TA8 PO (18:50)
[2018-03-04] MEDS ORDERED: LISI-600 PO (18:50)
[2018-03-04] MEDS ORDERED: CLOP75TA35 PO (18:50)
[2018-03-04] MEDS ORDERED: RISP1TAB3 PO (18:50)
[2018-03-04] MEDS: risperiDONE 0.5mg tablet PO SCH (20:09)
[2018-03-04] MEDS: mirtazapine 15mg tablet PO SCH (20:09)
[2018-03-05 04:57] LABS: CLARITY,URINE CLEAR (Clear); COLOR,URINE YELLOW (Yellow); GLUCOSE, URINE NEGATIVE (Neg); KETONES,URINE NEGATIVE (Neg); LEUKOCYTE ESTERASE ,URINE NEGATIVE (Neg); NITRITES, URINE NEGATIVE (Neg); OCCULT BLOOD,URINE NEGATIVE (Neg); PH,URINE 6.5 (4.8-8.0); PROTEIN,URINE NEGATIVE (Neg); UROBILINOGEN,URINE 0.2 E.U/dL (0.2-1.0)
[2018-03-05 05:06] LABS: URINE AMPHETAMINE SCREEN NEGATIVE (Neg); URINE BARBITUATE SCREEN NEGATIVE (Neg); URINE BENZODIAZEPINES SCREEN NEGATIVE (Neg); URINE CANNABINOID SCREEN NEGATIVE (Neg); URINE COCAINE SCREEN NEGATIVE (Neg); URINE METHADONE SCREEN NEGATIVE (Neg); URINE OPIATE SCREEN NEGATIVE (Neg); URINE PHENCYCLIDINE SCREEN NEGATIVE (Neg)
[2018-03-05 05:13] LABS: UA COLLECTION TYPE VOIDED
[2018-03-05] MEDS: atorvastatin 10mg tablet PO SCH ×2 (08:00→08:32)
[2018-03-05] MEDS: lisinopril 20mg tablet PO SCH ×2 (08:00→08:33)
[2018-03-05] MEDS: clopidogrel 75mg tablet PO SCH ×2 (08:00→08:32)
[2018-03-05] MEDS: mirtazapine 15mg tablet PO SCH (21:10)
[2018-03-05] MEDS: risperiDONE 0.5mg tablet PO SCH (21:10)
[2018-03-06] MEDS: atorvastatin 10mg tablet PO SCH (08:00)
[2018-03-06] MEDS: lisinopril 20mg tablet PO SCH (08:00)
[2018-03-06] MEDS: clopidogrel 75mg tablet PO SCH (08:00)
[2018-03-06] MEDS: risperiDONE 0.5mg tablet PO SCH (20:04)
[2018-03-06] MEDS: mirtazapine 15mg tablet PO SCH (20:04)
[2018-03-07] MEDS ORDERED: haloperidol lactate 5mg/ml inj IM ONE (00:15)
[2018-03-07] MEDS ORDERED: LORazepam 2 mg/ml vial IM ONE (00:15)
[2018-03-07] MEDS: clopidogrel 75mg tablet PO SCH (07:52)
[2018-03-07] MEDS: atorvastatin 10mg tablet PO SCH (07:53)
[2018-03-07] MEDS: lisinopril 20mg tablet PO SCH (07:53)
[2018-03-07] MEDS: mirtazapine 15mg tablet PO SCH (20:07)
[2018-03-07] MEDS: risperiDONE 0.5mg tablet PO SCH (20:07)
[2018-03-08] MEDS: clopidogrel 75mg tablet PO SCH (08:38)
[2018-03-08] MEDS: atorvastatin 10mg tablet PO SCH (08:38)
[2018-03-08] MEDS: lisinopril 20mg tablet PO SCH (08:38)
[2018-03-08] MEDS: risperiDONE 0.5mg tablet PO SCH (20:15)
[2018-03-08] MEDS: mirtazapine 15mg tablet PO SCH (20:15)
[2018-03-09] MEDS: lisinopril 20mg tablet PO SCH (07:29)
[2018-03-09] MEDS: clopidogrel 75mg tablet PO SCH (07:29)
[2018-03-09] MEDS: atorvastatin 10mg tablet PO SCH (07:29)
[2018-03-09] MEDS: risperiDONE 0.5mg tablet PO SCH (22:18)
[2018-03-09] MEDS: mirtazapine 15mg tablet PO SCH (22:18)
[2018-03-10] MEDS: clopidogrel 75mg tablet PO SCH (08:38)
[2018-03-10] MEDS: atorvastatin 10mg tablet PO SCH (08:38)
[2018-03-10] MEDS: lisinopril 20mg tablet PO SCH (08:39)
[2018-03-10] MEDS: risperiDONE 0.5mg tablet PO SCH (21:00)
[2018-03-10] MEDS: mirtazapine 15mg tablet PO SCH (21:00)
[2018-03-11] MEDS: atorvastatin 10mg tablet PO SCH (08:00)
[2018-03-11] MEDS: clopidogrel 75mg tablet PO SCH (08:00)
[2018-03-11] MEDS: lisinopril 20mg tablet PO SCH (08:00)
[2018-03-11 17:33] LABS: CLARITY,URINE CLEAR (Clear); COLOR,URINE YELLOW (Yellow); GLUCOSE, URINE NEGATIVE (Neg); KETONES,URINE NEGATIVE (Neg); LEUKOCYTE ESTERASE ,URINE NEGATIVE (Neg); NITRITES, URINE NEGATIVE (Neg); OCCULT BLOOD,URINE NEGATIVE (Neg); PROTEIN,URINE NEGATIVE (Neg); UROBILINOGEN,URINE 0.2 E.U/dL (0.2-1.0)
[2018-03-11 17:35] LABS: UA COLLECTION TYPE NON-SPECIFIED
[2018-03-11 17:37] LABS: URINE AMPHETAMINE SCREEN NEGATIVE (Neg); URINE BARBITUATE SCREEN NEGATIVE (Neg); URINE BENZODIAZEPINES SCREEN NEGATIVE (Neg); URINE CANNABINOID SCREEN NEGATIVE (Neg); URINE COCAINE SCREEN NEGATIVE (Neg); URINE METHADONE SCREEN NEGATIVE (Neg); URINE OPIATE SCREEN NEGATIVE (Neg); URINE PHENCYCLIDINE SCREEN NEGATIVE (Neg)
[2018-03-11] MEDS: risperiDONE 0.5mg tablet PO SCH (19:54)
[2018-03-11] MEDS: mirtazapine 15mg tablet PO SCH (19:54)
[2018-03-12] MEDS: lisinopril 20mg tablet PO SCH (08:00)
[2018-03-12] MEDS: atorvastatin 10mg tablet PO SCH (08:00)
[2018-03-12] MEDS: clopidogrel 75mg tablet PO SCH (08:00)
[2018-03-12] MEDS: mirtazapine 15mg tablet PO SCH (20:22)
[2018-03-12] MEDS: risperiDONE 0.5mg tablet PO SCH (20:23)
[2018-03-12 21:55] VITALS: BP 110/53
== END 2018-03-12 21:58 ==
LOC: ER 15:37
DX: F28 Other psychotic disorder not due to a substance or known physiological condition (principal); F78 Other intellectual disabilities; F41.9 Anxiety disorder, unspecified; F32.9 Major depressive disorder, single episode, unspecified; F12.90 Cannabis use, unspecified, uncomplicated; Z90.710 Acquired absence of both cervix and uterus; Z88.1 Allergy status to other antibiotic agents; Z88.0 Allergy status to penicillin; Z88.5 Allergy status to narcotic agent; Z79.899 Other long term (current) drug therapy
CPT/HCPCS: 36415; 80053; 80305; 80320; 81003; 85025; 96372; 99285

== ENCOUNTER 2018-06-10 18:10 | Emergency (ER) | payer MEDICARE, MEDICAID ==
[~2018-06-10] VITALS: Ht 154.9 cm; Wt 52.3 kg
[~2018-06-10 18:10] MED LIST changes: -ATOR10TA PO; +ATOR10TA87 PO
[2018-06-10 19:04] VITALS: BP 132/56
--- NOTE | 2018-06-10 19:49 | NUR ---
MD FLETCHER IN ROOM ASSESSING PATIENT, PATIENT APPEARS A&OX4 , AND JUST DIDN'T WANT TO COOPERATE WITH STAFF.
--- NOTE | 2018-06-10 20:56 | NUR ---
CALLED [facility] AT 20:53 FOR [facility]. [facility] STATED THEY WERE NOT AT [facility] YET TO TRANSPORT [facility]. WAS ADVISED THAT [facility] WOULD CALL BACK LATER FOR ETA
--- NOTE | 2018-06-10 21:10 | NUR ---
PT IS RESTING QUIETLY ON [place] WAITING FOR TRANSPORT BACK TO [facility]
--- NOTE | 2018-06-10 21:35 | NUR ---
TALKED TO NURSE ISELA AT [facility], THEY ARE EXPECTING THE PATIENT TO BE RETURNED VIA [facility], [facility] TRANSPORT SETUP FOR BLS [id number]. PT IS GOING TO ROOM A03. PLEASE CALLED ISELA WHEN PATIENT IS PICKED UP.
--- NOTE | 2018-06-10 21:36 | NUR ---
CALLED [facility] FOR TRANSPORT UPDATE AT 21:37. STILL NOT UP TO [facility] YET NO ETA K[facility]LA
--- NOTE | 2018-06-10 21:37 | NUR ---
GAVE PT SANDWICH AND WATER, [place], NO N/V
--- NOTE | 2018-06-10 21:41 | NUR ---
KIN CALLED BACK AT 21:39 STATED 30 MINS ETA FLEET MANAGER
== END 2018-06-10 21:48 ==
LOC: ER 18:10
DX: F32.9 Major depressive disorder, single episode, unspecified (principal); I10 Essential (primary) hypertension; F41.9 Anxiety disorder, unspecified; F12.90 Cannabis use, unspecified, uncomplicated; Z90.710 Acquired absence of both cervix and uterus; Z88.0 Allergy status to penicillin; Z88.1 Allergy status to other antibiotic agents; Z88.5 Allergy status to narcotic agent; Z79.899 Other long term (current) drug therapy
CPT/HCPCS: 99285